=== PATIENT | male | born 1985 | race Caucasian/White ===

== ENCOUNTER 2024-06-05 06:10 | Emergency (ER) | payer OTHER ==
[~2024-06-05] VITALS: Ht 167.6 cm; Wt 75.0 kg
[2024-06-05 06:21] VITALS: O2SAT 97
[2024-06-05 07:27] LABS: BASOPHILS % 0.6 % (0.0-2.0); EOSINOPHILS % 1.1 % (0.0-5.0); HEMATOCRIT. 41.3 % (42.0-52.0); HEMOGLOBIN. 13.8 g/dL (14.0-18.0); LYMPHOCYTES % 7.2 % (20.0-50.0); MEAN CORPUSCULAR HEMOGLOBIN 29.8 pg (28.0-32.0); MEAN CORPUSCULAR HGB CONC 33.4 g/dL (31.0-37.0); MEAN CORPUSCULAR VOLUME 89.3 fL (80.0-94.0); MEAN PLATELET VOLUME 7.2 fl (7.4-10.4); MONOCYTES % 7.6 % (2.0-8.0); NEUTROPHILS % 83.5 % (40.0-76.0); PLATELET 365 x1000/uL (130-400); RED BLOOD CELL COUNT 4.63 mill/uL (4.7-6.1); RED CELL DISTRIBUTION WIDTH 13.2 % (11.6-14.6); WHITE BLOOD COUNT 15.7 x1000/uL (4.5-11.0)
[2024-06-05 07:34] LABS: CHLORIDE 101 mEq/L (98-107); POTASSIUM 3.9 mEq/L (3.5-5.1); SODIUM 138 mEq/L (136-145)
[2024-06-05 07:35] LABS: CALCIUM 9.9 mg/dL (8.7-10.4); CARBON DIOXIDE 30 mEq/L (21-32)
[2024-06-05 07:38] LABS: INR 0.9; PROTHROMBIN TIME 10.5 sec (9.6-11.0)
[2024-06-05 07:40] LABS: GLUCOSE 109 mg/dL (70-105); UREA NITROGEN BLOOD 14 mg/dL (9-23)
[2024-06-05 07:42] LABS: ALANINE AMINOTRANSFERASE 74 IU/L (10-49); ALBUMIN 4.7 g/dL (3.2-4.8); ASPARTATE AMINOTRANSFERASE 41 IU/L (<34); BILIRUBIN DIRECT 0.1 mg/dL (<=3.0)
[2024-06-05 07:43] LABS: BILIRUBIN TOTAL 0.5 mg/dL (0.1-1.0)
[2024-06-05 07:56] LABS: CLARITY URINE CLEAR (CLEAR); COLOR URINE YELLOW (YELLOW); GLUCOSE URINE NEGATIVE (NEGATIVE); KETONES URINE NEGATIVE (NEGATIVE); LEUKOCYTE ESTERASE URINE NEGATIVE (NEGATIVE); NITRITE URINE NEGATIVE (NEGATIVE); OCCULT BLOOD URINE 1+ (NEGATIVE); PROTEIN URINE 1+ (NEGATIVE); SPECIFIC GRAVITY URINE 1.029 (1.005-1.030)
[2024-06-05 08:14] LABS: SQUAMOUS EPITHELIAL CELL URINE RARE /lpf (RARE/1+); WBC URINE 0-2 /hpf (0-2)
[2024-06-05 08:15] LABS: BACTERIA URINE FEW; YEAST URINE NONE SEEN
[2024-06-05] MEDS ORDERED: TOPUD PO (08:41)
[2024-06-05] MEDS ORDERED: AMOX1TAB16 PO (08:41)
[2024-06-05 09:02] VITALS: BP 138/87; PULSE 88; RESP 18; TEMP 36.83628; O2SAT 97
== END 2024-06-05 09:03 | disposition home or self-care (01) ==
LOC: ER 06:10
DX: K57.92 Diverticulitis of intestine, part unspecified, without perforation or abscess without bleeding (principal)
CPT/HCPCS: 36415; 74176; 80048; 80076; 81003; 85025; 93005; 99284